=== PATIENT | female | born 1955 | race Caucasian/White ===

== ENCOUNTER 2017-01-19 18:07 | Emergency (ER) | payer BC ==
[2017-01-19 18:25] VITALS: BP 124/83
[2017-01-19] MEDS ORDERED: Cyclobenzaprine TAB* 10 MG PO ONE (19:21)
[2017-01-19] MEDS ORDERED: HYDROcodone/ACETAMIN 5-325 MG* 1 TAB PO ONE (19:21)
--- NOTE | 2017-01-19 19:30 | UC ---
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 She is right handed. She went bowling for the 1st time in a long time yesterday and awoke with the pain described above. She states movement makes the pain worse. No pain associated with deep inspiration. No cough or SOB. No palpitations or diaphoresis - History of Current Complaint Chief Complaint: UCBackPain Stated Complaint: SHOULDER, AND NECK PAIN - Allergies/Home Medications Allergies/Adverse Reactions: Allergies Allergy/AdvReac Type Severity Reaction Status Date / Time Codeine Allergy Unknown VOMITE Verified 05/02/16 17:17 PMH/Surg Hx/FS Hx/Imm Hx Endocrine History Of: Denies: Diabetes Cardiovascular History Of: Denies: Hypertension, Pacemaker/ICD Respiratory History Of: Reports: Asthma GI/ History Of: Denies: Renal Disease Psychological History Of: Reports: Depression Cancer History Of: Denies: Breast Cancer - Surgical History Surgical History: Yes Surgery Procedure, Year, and Place: MAXILLARY SINUS 1990- CANCER - W/RADIATION TREATMENT; THEN MANY RECONSTRUCTIVE SURG, MOUTH & EYE PROSTHESIS - NEEDS TO BE REMOVED PROIR TO SCANNING MRI- CLEARED FOR HOSP - [address] JEROME. 1977- DISCETOMY- lower back - Family History Known Family History: Positive: None - Social History Alcohol Use: Weekly Alcohol Amount: 5 OUT OF 7 DAYS 1-2 OR 4-5 DRINKS/DAY Substance Use Type: None Smoking Status (MU): Former Smoker Have You Smoked in the Last Year: Yes When Did the Patient Quit Smoking/Using Tobacco: AGE 26 - Immunization History Most Recent Influenza Vaccination: 2040-4301 SEASON Most Recent Tetanus Shot: UTD Most Recent Pneumonia Vaccination: never Review Of Systems Constitutional: Positive: Negative Skin: Positive: Negative Eyes: Positive: Negative ENT: Positive: Negative Respiratory: Positive: Negative Cardiovascular: Positive: Negative Gastrointestinal: Positive: Negative Genitourinary: Positive: Negative Musculoskeletal: Positive: Arthralgia, Myalgia Neurological: Positive: Negative Psychological: Positive: Negative All Other Systems Reviewed And Are Negative: Yes Physical Exam Triage Information Reviewed: Yes Appearance: Well-Appearing Vital Signs: Initial Vital Signs Temp 98.4 F 01/19/17 18:19 Pulse 82 01/19/17 18:19 Resp 16 01/19/17 18:19 BP 124/83 01/19/17 18:19 Pulse Ox 99 01/19/17 18:19 Vital Signs Reviewed: Yes Respiratory: Positive: Chest non-tender, Lungs clear. Negative: Crackles, Rhonchi, Wheezing Cardiovascular: Positive: RRR, No Murmur Musculoskeletal: Positive: Strength Intact, ROM Intact, Other: - TTP over lateral R neck, trapezium, pectoralis and anterior deltoid Neck Pain Course/Dx - Course Course Of Treatment: Patient presents with acute onset RUE/neck/chest pain after bowling yesterday. No associated CV or resp complaints. TTP. Likely musculoskeletal in origin. Recommend heat, prn pain medications and muscle relaxants. - Differential Dx/Diagnosis Differential Dx/HQI/PQRI: Sprain, Strain, Trauma Provider Diagnoses: 1. Acute muscle strain of R neck, trapezium, anterior deltoid and chest wall Discharge - Discharge Plan Condition: Stable Disposition: HOME Prescriptions: Cyclobenzaprine TAB* [Flexeril 10 MG TAB*] 10 mg PO TID PRN #20 tab PRN Reason: pain/spasm Hydrocodone-Acetaminophen [Vicodin 5-300 mg] 1 tab PO Q6H PRN #20 tab MDD 4 tabs PRN Reason: mod to severe pain Patient Education Materials: Muscle Strain (ED) Referrals: Lorenzo Alvarado MD [Primary Care Provider] - Additional Instructions: Activity: As tolerated Instructions: 1. Continue to use Advil as needed at home 2. Use Vicodin/Flexeril for more severe pain/spasm 3. Apply heat to help relax the effected muscles
== END 2017-01-19 19:42 | disposition home or self-care (01) ==
LOC: UCEAST 18:07
DX: S16.1XXA Strain of muscle, fascia and tendon at neck level, initial encounter (principal); S46.911A Strain of unspecified muscle, fascia and tendon at shoulder and upper arm level, right arm, initial encounter; S29.011A Strain of muscle and tendon of front wall of thorax, initial encounter; X58.XXXA Exposure to other specified factors, initial encounter; Y93.54 Activity, bowling; Y92.9 Unspecified place or not applicable; Z88.2 Allergy status to sulfonamides; Z87.891 Personal history of nicotine dependence
CPT/HCPCS: 99213; A9270-GY; G0463

== ENCOUNTER 2017-12-30 13:38 | Emergency (ER) | payer BC ==
[2017-12-30 14:06] VITALS: BP 129/82
--- NOTE | 2017-12-30 14:26 | UC ---
Ear Complaint HPI - HPI Summary HPI Summary: 62F presents with ear pain for a month. She has been on a two course of antibiotic. She is unsure which antibiotic. She has not followed up with ENT since being diagnosed. She has follow up with primary in two days. She states last night pain got worst. She has a head now. pain is in right ear. She denies any sinus congestion or recent illness. She states area is itchy. She called primary and was placed on ofloxacin. - History of Current Complaint Chief Complaint: UCEar Stated Complaint: EAR PAIN Time Seen by Provider: 12/30/17 14:09 Pain Intensity: 3 - Allergies/Home Medications Allergies/Adverse Reactions: Allergies Allergy/AdvReac Type Severity Reaction Status Date / Time codeine Allergy Intermediate Nausea Verified 12/30/17 14:06 PMH/Surg Hx/FS Hx/Imm Hx Endocrine History: Other Other Endocrine History: no DM Respiratory History: Other Other Respiratory History: no COPD - Surgical History Surgical History: Yes Surgery Procedure, Year, and Place: MAXILLARY SINUS 1990- CANCER - W/RADIATION TREATMENT; THEN MANY RECONSTRUCTIVE SURG, MOUTH & EYE PROSTHESIS - NEEDS TO BE REMOVED PROIR TO SCANNING MRI- CLEARED FOR HOSP - [address] JEROME. 1977- DISCETOMY- lower back - Family History Known Family History: Positive: None - Social History Alcohol Use: Weekly Alcohol Amount: 5 OUT OF 7 DAYS 1-2 OR 4-5 DRINKS/DAY Substance Use Type: None Smoking Status (MU): Former Smoker Have You Smoked in the Last Year: Yes When Did the Patient Quit Smoking/Using Tobacco: AGE 26 - Immunization History Most Recent Influenza Vaccination: [id number] SEASON Most Recent Tetanus Shot: UTD Most Recent Pneumonia Vaccination: never Review of Systems Constitutional: Negative ENT: Ear Ache Respiratory: Negative Cardiovascular: Negative All Other Systems Reviewed And Are Negative: Yes Physical Exam Triage Information Reviewed: Yes Appearance: Well-Appearing Vital Signs: Initial Vital Signs Temp 99.1 F 12/30/17 14:00 Pulse 79 12/30/17 14:00 Resp 16 12/30/17 14:00 BP 129/82 12/30/17 14:00 Pulse Ox 99 12/30/17 14:00 Vital Signs Reviewed: Yes Eyes: Positive: Conjunctiva Clear ENT: Positive: Pharynx normal, Nasal congestion, TMs normal, Other - right TM canal edematous and erythematous Neck: Positive: Supple, Nontender, No Lymphadenopathy Respiratory: Positive: Lungs clear, Normal breath sounds Cardiovascular: Positive: RRR Abdomen Description: Positive: Nontender, Soft Bowel Sounds: Positive: Present Musculoskeletal Exam: Normal Neurological Exam: Normal Psychological Exam: Normal Skin Exam: Normal Ear Complaint Course/Dx - Course Course Of Treatment: 62F presents with ear pain for a month. She has been on a two course of antibiotic. She is unsure which antibiotic. She has not followed up with ENT since being diagnosed. She has follow up with primary in two days. She states last night pain got worst. She has a head now. pain is in right ear. She denies any sinus congestion or recent illness. She states area is itchy. She called primary and was placed on ofloxacin. on exam canal right edematous and erythematous. does not appear fungal. will try ciprodex with wick. discussed adding oral since has failed so many weeks and patient declined. discussed case with dr neff. placed wick in ear. patient understand and agrees with plan. - Differential Dx/Diagnosis Differential Diagnosis/HQI/PQRI: Otitis Externa, Otitis Media, Perforated TM Provider Diagnoses: right otitis externa Discharge - Discharge Plan Condition: Good Disposition: HOME Prescriptions: Ciproflox/Dexameth OTIC.SUSP* [Ciprodex OTIC.SUSP*] 4 drop OTIC BID #1 btl Patient Education Materials: Otitis Externa (ED) Referrals: Ketan LANIER,Erica Hutchinson [Primary Care Provider] - Additional Instructions: Use 4 drops twice a day for 7 days Follow up with primary as scheduled Take Tylenol every 6 hours for pain Follow up with ENT Return to ED if develop any new or worsening symptoms
[2017-12-30] MEDS ORDERED: Ciproflox/Dexameth OTIC.SUSP* 7.5 ML BTL RIGHT EAR ONE (14:38)
[2017-12-30] MEDS ORDERED: Neomyc/Polym/HC 1% OTIC SUSP* **OTIC RIGHT EAR ONE (14:43)
== END 2017-12-30 14:55 | disposition home or self-care (01) ==
LOC: UCEAST 13:38
DX: H60.91 Unspecified otitis externa, right ear (principal); Z88.5 Allergy status to narcotic agent; Z87.891 Personal history of nicotine dependence
CPT/HCPCS: 99212; A9270-GY; G0463

== ENCOUNTER 2019-11-18 12:29 | Emergency (ER) | payer BC ==
--- OUTSIDE RECORDS SUMMARY | 2019-11-18 14:21 | XMS REPORT | Summary of Care ---
:1955 Author Organization [facility] Address [address] [address] Care Team Providers Name Role Phone Erica Aceves Primary Care Provider Reason for Visit Reason Comments Asthma Encounter Details Date Type Department Care Team Description 10/29/2019 Office Visit [facility] Ilia Mireles, Mild persistent asthma without complication (Primary Dx); [address] [facility] Need for prophylactic vaccination against Streptococcus pneumoniae ( pneumococcus); [place] [address] [address] SOB (shortness of breath) [phone] [place] [address] [phone] Allergies Active Allergy Reactions Severity Noted Date Comments Codeine GI Reaction 10/18/2015 documented as of this encounter (statuses as of 10/29/2019) Medications Medication Sig Dispensed Refills Start Date End Date Status clobetasol by Topical route 0 Active (TEMOVATE) 0.05 % TWICE DAILY. Apply externally Cream ESTRADIOL VAGINAL Place 1 Each 0 Active (ESTRACE VAGINAL) into the vagina. 0.1 MG/GM Vaginal Q 2 to [address] to the 0 Active l-Glycerin external eye (LUBRICATING EYE TWICE DAILY. DROPS OP) ibuprofen (MOTRIN) Take 1 Tab by 120 Tab 0 07/10/2017 Active 200 MG Oral Tab mouth EVERY SIX HOURS NEEDED for Pain. MEDICAL MARIJUANA 0.4 mL TWICE 0 Active DAILY. NEOMYCIN-POLYMYXIN Place 4 Drops 1 Bottle 0 11/07/2018 Active -HC, OTIC, into the ear (CORTISPORIN) 1 % canal TWICE Otic Solution DAILY. Phenylephrine-Acet Take by mouth 0 Active aminophen (TYLENOL NEEDED. SINUS CONGESTION/PAIN PO) Esomeprazole 20 MG Take by mouth 0 Active Oral CAPSULE TWICE DAILY. DELAYED RELEASE MISC NATURAL Take by mouth. 0 Active PRODUCTS Indications: POIndications: Classic Pearls/ Classic Pearls/ bhutanese herb for bhutanese herb for memory memory ciprofloxacin-dexa Place 4 Drops 1 Bottle 2 03/19/2019 Active methasone into both ears (CIPRODEX) 0.3-0.1 TWICE DAILY. % Otic SuspensionIndicati ons: Chronic otitis media of left ear levalbuterol HFA INHALE 1 TO 2 1 Inhaler 11 04/28/2019 Active (XOPENEX) 45 PUFFS BY MOUTH MCG/ACT Inhalation EVERY 6 HOURS Aerosol NEEDED FOR COUGH OR WHEEZE diltiazem 360 MG Take 1 Cap by 90 Cap 3 06/08/2019 Active Oral CAPSULE SR 24 mouth DAILY. HRIndications: Essential hypertension, SVT (supraventricular tachycardia) (HCC) montelukast Take 1 Tab by 30 Tab 5 07/27/2019 Active (SINGULAIR) 10 MG mouth DAILY for 0 Oral Tab 182 days. Vortioxetine HBr Take 10 mg by 0 Active (TRINTELLIX) 10 MG mouth DAILY. Oral Tab Fluticasone Take 1 INHL by 1 Each 5 10/29/2019 Active Furoate 100 inhalation MCG/ACT Inhalation DAILY. AEROSOL POWDER, BREATH ACTIVATED Fluticasone Take 1 INHL by 1 Each 11 02/04/2019 Discontinued Furoate-Vilanterol inhalation 9 100-25 MCG/INH DAILY. 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 Dry throat 10/18/2015 documented as of this encounter (statuses as of 10/29/2019) Immunizations Name Administration Dates Next Due Influenza (IM) Preservative Free 09/16/2019, 09/03/2018 Influenza Vaccine Split 09/03/2015 PNEUMOCOCCAL POLYSACCHARIDE VACCINE 10/29/2019 TDAP Vaccine 05/03/2014 ZOSTER (SHINGRIX) VACCINE 04/03/2019, 12/11/2018 documented as of this encounter Social History Tobacco Use Types Packs/Day Years Used Date Former Smoker Cigarettes 10 Quit: 11/11/1980 Smokeless Tobacco: Never Used Alcohol Use Drinks/Week oz/Week Comments Yes 1 Cans of beer 1.0 10 drinks /week Sex Assigned at Date Recorded Not on file Job Start Date Occupation Industry Not on file Not on file Not on file Travel History Travel Start Travel End No recent travel history available. documented as of this encounter Last Filed Vital Signs Vital Sign Reading Time Taken Comments Blood Pressure 124/88 10/29/2019 2:23 PM EST Pulse 76 10/29/2019 2:23 PM EST Temperature - - Respiratory Rate - - Oxygen Saturation 98% 10/29/2019 2:23 room air at rest PM EST Inhaled Oxygen - - Concentration Weight 61 kg (134 lb 6.4 oz) 10/29/2019 2:23 PM EST Height 167 cm (5' 5.75") 10/29/2019 2:23 measured in office PM EST Body Mass Index 21.86 10/29/2019 2:23 PM EST documented in this encounter Progress Notes Ilia Mireles MD - 10/29/2019 2:15 PM EST Name: Makenna Carey : 1955 Date of Service: 10/29/2019 Referring Practioner: Ilia Mireles Primary Care Provider: Erica Aceves History of Present Illness Makenna Carey is a 64-y.o. female who presents for a reevaluation of her probable asthma. Patient is presently on Breo. She denies having had any exacerbation since the summer. It is very hard to measure pulmonary function test because she is unable to close her mouth. She denies any fever or chills. The patient denies any chest pain, abdominal pain, melena, hematuria,rash or swelling of any joints. She does not need to use her rescue inhaler. Allergies Allergen Reactions Codeine GI Reaction Social History Socioeconomic History Marital status: Single Spouse name: Not on file Number of children: Not on file Years of education: Not on file Highest education level: Not on file Occupational History Not on file Social Needs Financial resource strain: Not on file Food insecurity Worry: Not on file Inability: Not on file Transportation needs Medical: Not on file Non-medical: Not on file Tobacco Use Smoking status: Former Smoker Years: 10.00 Types: Cigarettes Last attempt to quit: 11/11/1980 Years since quittin.9 Smokeless tobacco: Never Used Substance and Sexual Activity Alcohol use: Yes Alcohol/week: 1.0 standard drinks Types: 1 Cans of beer per week Comment: 10 drinks /week Drug use: Yes Types: Marijuana, Prescription Comment: medical Marijuana Sexual activity: Not on file Lifestyle Physical activity Days per week: Not on file Minutes per session: Not on file Stress: Not on file Relationships Social connections Talks on phone: Not on file Gets together: Not on file Attends episcopalian service: Not on file Active member of club or organization: Not on file Attends meetings of clubs or organizations: Not on file Relationship status: Not on file Intimate partner violence Fear of current or ex partner: Not on file Emotionally abused: Not on file Physically abused: Not on file Forced sexual activity: Not on file Other Topics Concern Back Care Not Asked Bike Helmet Not Asked Blood Transfusions Not Asked Caffeine Concern Not Asked Exercise Not Asked Hobby Hazards Not Asked International Travel Not Asked Service Not Asked Occupational Exposure Not Asked Seat Belt Not Asked Self-Exams Not Asked Sleep Concern Not Asked Special Diet Not Asked Stress Concern Not Asked Weight Concern Not Asked Social History Narrative Patient is retired- patient previously worked as a explosive specialist- no known exposure to asbestos, silica or tuberculosis Current Outpatient Medications Medication Sig Carboxymethylcellul-Glycerin (LUBRICATING EYE DROPS OP) Place to the external eye TWICE DAILY. ciprofloxacin-dexamethasone (CIPRODEX) 0.3-0.1 % Otic Suspension Place 4 Drops into both earsTWICE DAILY. clobetasol (TEMOVATE) 0.05 % Apply externally Cream by Topical route TWICE DAILY. diltiazem 360 MG Oral CAPSULE SR 24 HR Take 1 Cap by mouth DAILY. Esomeprazole 20 MG Oral CAPSULE DELAYED RELEASE Take by mouth TWICE DAILY. ESTRADIOL VAGINAL (ESTRACE VAGINAL) 0.1 MG/GM Vaginal Cream Place 1 Each into the vagina. Q 2to 3 weeks Fluticasone Furoate 100 MCG/ACT Inhalation AEROSOL POWDER, BREATH ACTIVATED Take 1 INHL by inhalation DAILY. ibuprofen (MOTRIN) 200 MG Oral Tab Take 1 Tab by mouth EVERY SIX HOURS NEEDED for Pain. levalbuterol HFA (XOPENEX) 45 MCG/ACT Inhalation Aerosol INHALE 1 TO 2 PUFFS BY MOUTH EVERY 6HOURS NEEDED FOR COUGH OR WHEEZE MEDICAL MARIJUANA 0.4 mL TWICE DAILY. MISC NATURAL PRODUCTS PO Take by mouth. Indications: Classic Pearls/ bhutanese herb for memory montelukast (SINGULAIR) 10 MG Oral Tab Take 1 Tab by mouth DAILY for 182 days. RKFBPAID-CHNORIXOH-AN, OTIC, (CORTISPORIN) 1 % Otic Solution Place 4 Drops into the ear canalTWICE DAILY. Phenylephrine-Acetaminophen (TYLENOL SINUS CONGESTION/PAIN PO) Take by mouth NEEDED. Vortioxetine HBr (TRINTELLIX) 10 MG Oral Tab Take 10 mg by mouth DAILY. No current facility-administered medications for this visit. Past Medical History: Diagnosis Date Arthritis Asthma Cancer (HCC) 1989 left maxillary sinus Eczema GERD (gastroesophageal reflux disease) Headache disorder Hearing problem Hypertension Other secondary hypertension 02/28/2018 Temporomandibular joint disorder Trismus left jaw Past Surgical History: Procedure Laterality Date DISCECTOMY, LUMBAR 1L 1977 FACIAL BONE RECONSTR NEC L maxillary squamous cancer surgery SINUSOTOMY NOS Left 1989 left maxillary sinus cancer Family History Problem Relation Age of Onset Diabetes Mother Cancer Mother colon Heart Father Cancer Father lung, bladder Respiratory Father Thyroid Sister Arthritis Sister lyme Psychiatry Sister REVIEW OF SYSTEMS: A remaining review of systems was negative except for as noted in the history of present illness/subjective. PHYSICAL EXAMINATION: VITALS: Vitals: 10/29/19 1423 BP: 124/88 BP Location: Left arm Patient Position: Sitting Pulse: 76 SpO2: 98% Weight: 134 lb 6.4 oz (61 kg) Height: 5' 5.75" (1.67 m) GENERAL: alert, oriented, no acute distress HEENT: sclera normal, anicteric, mucous membrane moist, conjunctivitis pink and pale, posterior pharynx: Deformed, tongue midline , dry mucous membranes. Left eye has been removed NECK: no mass, no adenopathy, no thyromegaly, supple, thyroid: not enlarged, symmetric, no tenderness/mass/nodules, no jugular venous distention. LUNGS: diminished breath sounds bilateral. HEART: regular rhythm, no murmurs, no gallops, no rubs S1: normal S2: normal. ABDOMEN: soft, non tender, without masses or organomegaly, nondistended, normal bowel sounds, without guarding, without rebound, mild epigastric discomfort. EXTREMITIES: no clubbing, cyanosis, or edema. NEUROLOGICAL: alert and oriented x3 gait: normal. Impression/Plan: 1. Shortness of breath and possible asthma. Patient is doing well. At this point, I do not think that we need to be on a combination inhaler. So, I will discontinue to Breo and, instead, I will puther on Arnuity 100 mcg using 1 puff once a day. Patient will then come back for a reevaluation in March. If she still not having any problem, we may consider decreasing her medication further. 2. Immunization. The patient was offered and did agree to have a pneumococcal vaccination. Author: Ilia Mireles MD 14:47 10/29/2019 documented in this encounter Plan of Treatment Date Type Specialty Care Team Description 03/08/2020 Office Visit Family Practice Hanane Barragan MD [address] [place] [address] 03/31/2020 Office Visit Pulmonary Ilia Mireles MD [address] [place] [address] [place] [address] 06/08/2020 Office Visit Cardiology Bobby Morin MD [address] [place] [address] Health Maintenance Due Date Last Done Comments PNEUMOCOCCAL 0-64 YRS (1 of 1963 1 - PPSV23) PAP SMEAR 1978 Colonoscopy 2007 MAMMOGRAM (SCREENING) 11/28/2018 11/28/2017, 11/28/2017, 11/02/2016, Additional history exists DEPRESSION SCREENING 09/16/2020 09/16/2019, 09/03/2018 LIPID DISORDER SCREENING 09/16/2020 09/16/2019, 09/09/2018, 07/09/2017 DTaP/Tdap/Td Vaccines (2 - 05/03/2024 05/03/2014 Tdap) ZOSTER IMMUNIZATION SERIES Completed 04/03/2019, 12/11/2018 INFLUENZA VACCINE Completed 09/16/2019, 09/03/2018, 09/03/2015 HEPATITIS A IMMUNIZATION Aged Out No longer eligible SERIES based on patient's age to complete this topic HPV IMMUNIZATION SERIES Aged Out No longer eligible based on patient's age to complete this topic MENINGOCOCCAL VACCINE IMM Aged Out No longer eligible based on patient's age to complete this topic documented as of this encounter Goals Goal Patient Goal Associated Recent Patient-Stated? Author Type Problems Progress Blood Pressure Blood Pressure 124/88 No Erica Aceves < 150/90 (10/29/2019 EVERARDO Atkinson 2:23 PM EST) Note: This is an individualized treatment (blood pressure) goal for Makenna Carey: Displayed above (on the left) is your goal for blood pressure control. Your most recent blood pressure is also shown above, on the right. You should try to achieve blood pressures that are lower than your goal listed above (on the left). Take all prescribed medications as Self-management No Erica Aceves PA- C directed Note: This is an individualized self-management goal for Makenna Carey: Please take all prescribed medications as directed. 1. Do not skip doses. If you cannot afford your medications, talk with your doctor. 2. Use a pill reminder system such as a pill box if needed. Your pharmacist can help you with this. 3. Contact your Pharmacy 5 days before your medication runs out. If you cannot take your medications for any reasons, talk with your doctor. 4. Please bring all of your medication bottles and inhalers (or a list of all your medications/inhalers) with you to every visit. Potential barriers to meeting all of your care plan goals will continue to be addressed on an ongoing basis. documented as of this encounter Results Not on filedocumented in this encounter Visit Diagnoses Diagnosis Need for prophylactic vaccination against Streptococcus pneumoniae ( pneumococcus) Need for prophylactic vaccination against streptococcus pneumoniae ( pneumococcus) Mild persistent asthma without complication Unspecified asthma SOB (shortness of breath) Shortness of breath documented in this encounter Insurance Payer Benefit Plan / Subscriber ID Effective Dates Phone Address Type Group ROXANA BUSTILLO xxxxxxxxxxxx 2017-Present Roxana HESS PPO Guarantor Name Account Type Relation to Date of Phone Billing Patient Address Makenna Carey Personal/Family 1955 [address] (Home) [place], [place] [phone] [id number] (Work) documented as of this encounter
[2019-11-18 14:35] VITALS: BP 131/74
--- NOTE | 2019-11-18 14:47 | UC ---
Respiratory Complaint HPI - HPI Summary HPI Summary: 64-year-old female with a history of asthma who has been ill for approximately 13 days. She has been using her albuterol inhaler without a spacer for wheezing. She states she feels a little bit more short of breath than normal. She denies any fever or chills. - History of Current Complaint Chief Complaint: UCRespiratory Stated Complaint: UPPER RESPIRATORY ISSUE COUGH Time Seen by Provider: 11/18/19 14:27 Hx Obtained From: Patient ?: No Onset/Duration: Gradual Onset Timing: Intermittent Episodes Severity Initially: Mild Severity Currently: Mild Pain Intensity: 2 Character: Cough: Nonproductive Aggravating Factors: Deep Breaths Alleviating Factors: Bronchodilator Associated Signs And Symptoms: Positive: URI, Nasal Congestion - Allergies/Home Medications Allergies/Adverse Reactions: Allergies Allergy/AdvReac Type Severity Reaction Status Date / Time codeine Allergy Intermediate Nausea Verified 11/18/19 14:24 Home Medications: Home Medications Vortioxetine Hydrobromide [Trintellix] 5 mg PO DAILY 11/18/19 [History Confirmed 11/18/19] PMH/Surg Hx/FS Hx/Imm Hx Previously Healthy: Yes Respiratory History: Asthma Cancer History: Other - 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 - Surgical History Surgical History: Yes Surgery Procedure, Year, and Place: MAXILLARY SINUS 1990- CANCER - W/RADIATION TREATMENT; THEN MANY RECONSTRUCTIVE SURG, MOUTH & EYE PROSTHESIS - NEEDS TO BE REMOVED PROIR TO SCANNING MRI- CLEARED FOR HOSP - [address] JEROME. 1977- DISCETOMY- lower back - Family History Known Family History: Positive: None - Social History Alcohol Use: Weekly Alcohol Amount: 5 OUT OF 7 DAYS 1-2 OR 4-5 DRINKS/DAY Substance Use Type: None Smoking Status (MU): Former Smoker Have You Smoked in the Last Year: Yes When Did the Patient Quit Smoking/Using Tobacco: AGE 26 - Immunization History Most Recent Influenza Vaccination: 1977-2315 SEASON Most Recent Tetanus Shot: UTD Most Recent Pneumonia Vaccination: never Review of Systems All Other Systems Reviewed And Are Negative: Yes Respiratory: Positive: Cough - Nonproductive moist cough Is Patient Immunocompromised?: No Physical Exam Triage Information Reviewed: Yes Appearance: Well-Appearing, No Pain Distress, Well-Nourished, Thin Vital Signs: Initial Vital Signs Temp 99.4 F 11/18/19 14:28 Pulse 89 11/18/19 14:28 Resp 18 11/18/19 14:28 BP 131/74 11/18/19 14:28 Pulse Ox 91 11/18/19 14:28 Vital Signs Reviewed: Yes ENT: Positive: Hearing grossly normal, TMs normal, Uvula midline, Other - Patient has had reconstructive surgery for maxillary sinus cancer. Neck: Positive: Supple, Nontender, No Lymphadenopathy Respiratory: Positive: No respiratory distress, No accessory muscle use, Rhonchi - Patient has rhonchi in the left lower rolled posteriorly, no distress , otherwise good air movement throughout. Cardiovascular: Positive: RRR, No Murmur, Pulses Normal, Brisk Capillary Refill Psychological Exam: Normal Respiratory Course/Dx - Course Course Of Treatment: Because the patient has had radiation in the past as well as numerous x-rays I am going to avoid a chest x-ray and treat her for a left lower lobe pneumonia with doxycycline. We also gave her a spacer so she can use her albuterol inhaler more effectively since she is unable to really put her mouth around and inhaler adequately I think the spacer will deliver more medication to her lungs. She does have a follow-up appointment with her primary care provider on Saturday however I asked her to change it to Saturday and to go to the ER if she has any worsening symptoms or increased shortness of breath. She is agreeable to this plan of action. - Differential Dx/Diagnosis Provider Diagnosis: LLL pneumonia Discharge ED - Sign-Out/Discharge Documenting (check all that apply): Patient Departure All imaging exams completed and their final reports reviewed: No Studies - Discharge Plan Condition: Good Disposition: HOME Prescriptions: DOXYcycline CAP(*) [DOXYcycline 100MG CAP(*)] 100 mg PO BID 10 Days #20 cap Patient Education Materials: Pneumonia (ED) Referrals: Hanane Barragan MD [Primary Care Provider] - Additional Instructions: Continue to use your albuterol inhaler with the spacer 2 puffs every 4-6 hours as needed for wheezing or tight cough. No dairy products, antacids or multivitamins 2 hours before you take the doxycycline and 2 hours after however be sure and take it with food. Make an appointment for recheck on Saturday with your primary care provider. If symptoms worsen and you get more short of breath you are to go to the emergency room for further treatment. - Billing Disposition and Condition Condition: GOOD Disposition: Home
== END 2019-11-18 14:55 | disposition home or self-care (01) ==
LOC: UCEAST 12:29
DX: J18.1 Lobar pneumonia, unspecified organism (principal); J45.909 Unspecified asthma, uncomplicated; Z87.891 Personal history of nicotine dependence; Z85.22 Personal history of malignant neoplasm of nasal cavities, middle ear, and accessory sinuses; Z92.3 Personal history of irradiation; Z88.5 Allergy status to narcotic agent
CPT/HCPCS: 99212; G0463

== ENCOUNTER 2019-12-23 09:53 | Emergency (ER) | payer BC ==
[2019-12-23 11:03] VITALS: BP 114/73
--- NOTE | 2019-12-23 11:13 | UC ---
Ear Complaint HPI - HPI Summary HPI Summary: 64-year-old female who complains of right inner ear pain which she attributes to possible swimmer's ear. She states she has had excessive ear canal itchiness and has been trying hydrocortisone cream without improvement. No Recent symptoms of illness - History of Current Complaint Chief Complaint: UCEar Stated Complaint: RT EARPAIN Time Seen by Provider: 12/23/19 11:12 Hx Obtained From: Patient ?: No Onset/Duration: Gradual Onset Severity Initially: Mild Severity Currently: Mild Pain Intensity: 3 Aggravating Factors: Nothing Alleviating Factors: Nothing - Allergies/Home Medications Allergies/Adverse Reactions: Allergies Allergy/AdvReac Type Severity Reaction Status Date / Time codeine Allergy Intermediate Nausea Verified 12/23/19 11:03 PMH/Surg Hx/FS Hx/Imm Hx Previously Healthy: Yes Respiratory History: Asthma Cancer History: Other - Patient had facial reconstruction surgery for maxillary sinus cancer in 1990. - Surgical History Surgical History: Yes Surgery Procedure, Year, and Place: MAXILLARY SINUS 1990- CANCER - W/RADIATION TREATMENT; THEN MANY RECONSTRUCTIVE SURG, MOUTH & EYE PROSTHESIS - NEEDS TO BE REMOVED PROIR TO SCANNING MRI- CLEARED FOR HOSP - [address] JEROME. 1977- DISCETOMY- lower back - Family History Known Family History: Positive: None - Social History Alcohol Use: Weekly Alcohol Amount: 5 OUT OF 7 DAYS 1-2 OR 4-5 DRINKS/DAY Substance Use Type: None Smoking Status (MU): Former Smoker Have You Smoked in the Last Year: Yes When Did the Patient Quit Smoking/Using Tobacco: AGE 26 - Immunization History Most Recent Influenza Vaccination: [id number] SEASON Most Recent Tetanus Shot: UTD Most Recent Pneumonia Vaccination: never Review of Systems All Other Systems Reviewed And Are Negative: Yes ENT: Positive: Other - Patient denies ear pain and she states that her ears are extremely itchy. Is Patient Immunocompromised?: No Physical Exam Triage Information Reviewed: Yes Appearance: Well-Appearing, No Pain Distress, Well-Nourished Vital Signs: Initial Vital Signs Temp 97.9 F 12/23/19 10:59 Pulse 74 12/23/19 10:59 Resp 16 12/23/19 10:59 BP 114/73 12/23/19 10:59 Pulse Ox 100 12/23/19 10:59 Vital Signs Reviewed: Yes Eyes: Positive: Conjunctiva Clear ENT: Positive: TMs normal, Other - Tragus is nontender, movement of the ear is nontender. The ear canal itself appears normal. Neck exam: Normal Neck: Positive: Supple, Nontender, No Lymphadenopathy Respiratory: Positive: Lungs clear, Normal breath sounds, No respiratory distress, No accessory muscle use Cardiovascular: Positive: RRR, No Murmur, Pulses Normal, Brisk Capillary Refill Skin Exam: Normal Ear Complaint Course/Dx - Course Course Of Treatment: Patient is comfortable here. She is to stop putting hydrocortisone cream inside or ears. She can try some triamcinolone for the itching twice a day but not to go deeply into the ear canal. Patient is agreeable to this plan of action. If no improvement she is to follow-up with her primary care provider. - Differential Dx/Diagnosis Provider Diagnosis: Ear itching Discharge ED - Sign-Out/Discharge Documenting (check all that apply): Patient Departure All imaging exams completed and their final reports reviewed: No Studies - Discharge Plan Condition: Good Disposition: HOME Prescriptions: Triamcinolone 0.025% OINT * 1 applic TOPICAL BID PRN #1 tube PRN Reason: Itching Patient Education Materials: Itchy Skin (ED) Referrals: Hanane Barragan MD [Primary Care Provider] - Additional Instructions: Avoid digging in your ears, follow-up with an ear nose and throat physician if worsening symptoms or if no improvement. - Billing Disposition and Condition Condition: GOOD Disposition: Home
== END 2019-12-23 11:36 | disposition home or self-care (01) ==
LOC: UCEAST 09:53
DX: H93.8X1 Other specified disorders of right ear (principal); H92.01 Otalgia, right ear; Z88.5 Allergy status to narcotic agent; J45.909 Unspecified asthma, uncomplicated; Z85.22 Personal history of malignant neoplasm of nasal cavities, middle ear, and accessory sinuses; Z87.891 Personal history of nicotine dependence
CPT/HCPCS: 99212; G0463